=== PATIENT | female | born 1990 | race Caucasian/White ===

== ENCOUNTER 2023-11-30 22:44 | Emergency (ER) | payer SELFPAY | END 2023-11-30 23:53 | disposition home or self-care (01) | LOC: CSHERS 22:44 | DX: F41.9 Anxiety disorder, unspecified (principal); F17.210 Nicotine dependence, cigarettes, uncomplicated | CPT/HCPCS: 99284 ==

== ENCOUNTER 2023-12-02 19:52 | Emergency (ER) | payer SELFPAY ==
[2023-12-02] MEDS ORDERED: Ondansetron ODT 4 MG TAB ONE (20:17)
[2023-12-02] MEDS ORDERED: Lorazepam 1 MG TAB ONE (20:26)
== END 2023-12-02 20:48 | disposition home or self-care (01) ==
LOC: CSHERS 19:52
DX: F41.9 Anxiety disorder, unspecified (principal); F19.10 Other psychoactive substance abuse, uncomplicated; E11.9 Type 2 diabetes mellitus without complications; F17.290 Nicotine dependence, other tobacco product, uncomplicated; F17.210 Nicotine dependence, cigarettes, uncomplicated; Z04.41 Encounter for examination and observation following alleged adult rape; Z59.00 Homelessness unspecified
CPT/HCPCS: 99283; Q0162